=== PATIENT | male | born 1955 | race Caucasian/White ===

== ENCOUNTER 2021-08-01 09:57 | Outpatient (CLI) | payer MEDICARE ==
[2021-08-01 10:24] LABS: Estimated GFR-MDRD - POC Greater than 90
[2021-08-01] MEDS ORDERED: Iopamidol 300 61% 100 ML VIAL FS ONE (10:25)
== END 2021-08-01 09:58 | disposition home or self-care (01) ==
LOC: CSHCT 09:57
PROVIDERS: ATTEND Student in an Organized Health Care Education/Training Program
DX: R63.4 Abnormal weight loss (principal); E04.1 Nontoxic single thyroid nodule; N42.83 Cyst of prostate; K57.30 Diverticulosis of large intestine without perforation or abscess without bleeding; M48.54XD Collapsed vertebra, not elsewhere classified, thoracic region, subsequent encounter for fracture with routine healing
CPT/HCPCS: 71260; 74177; 82565